=== PATIENT | male | born 1945 | race Caucasian/White ===

== ENCOUNTER 2023-09-29 14:04 | Inpatient (IN) | payer OTHER, SELFPAY ==
[2023-09-28] VITALS (11 sets, daily range): BP systolic 137–176; BP diastolic 49–138; PULSE 67–70; BMI 25.3
[2023-09-28 15:51] LABS: Glucose - Point of Care 78 mg/dl (70-99)
--- NOTE | 2023-09-28 17:27 | ED.CVA ---
History of Present Illness
<Dionicio Smalls PA-C - Last Filed: 09/28/23 18:54>
General
Chief Complaint: CVA/TIA Symptoms
Source: patient
Exam Limitations: none
Time Seen by Provider: 09/28/23 17:31
Onset of Stroke Symptoms
Onset of symptoms known: Yes
Date of onset of symptoms: 09/28/23
Time pt last seen normal is known: Yes
Date last time pt seen normal: 09/28/23
History of Present Illness
History of Present Illness:
78-year-old male with insulin-dependent diabetes history presents 3 hours after having episode while eating lunch. He states his left arm and fingers became numb he started to feel dizzy and his family members noted a left-sided facial droop. The
symptoms lasted maybe 10 to 15 minutes. The facial droop and dizziness and resolved. The numbness slowly resolved thereafter. He currently has no complaints. He denies headache chest pain shortness of or persistent numbness to the hand. No
prior or TIA. He is not anticoagulated. No other complaints at this time
<Greta Wilkinson MD - Last Filed: >
Travel History
Have you had any contact with someone who has COVID-19?: No
Do you have any symptoms of coronavirus? Fever > 100 degrees, chills, cough, shortness of breath, sore throat, loss of taste or smell, muscle aches, or headache?: No
Phy Exam
<Dionicio Smalls PA-C - Last Filed: 09/28/23 18:54>
Physical Exam
Physical Exam:
General: Well-appearing male no acute respiratory distress HEENT: Normocephalic atraumatic
Heart: Regular rate and rhythm no murmurs
Lungs: Clear to auscultation bilaterally no wheezing
Neurologic exam: Alert and oriented x 3 no facial asymmetry or slurred speech. No drift on exam sensation intact visual beck intact no aphasia or dysarthria.
Extremities: No cyanosis or edema
Abdomen soft nontender nondistended no guarding or rebound
Course
<Dionicio Smalls PA-C - Last Filed: 09/28/23 18:54>
Orders/Labs/Results
Orders:
Orders
09/28/23 15:48
CT Head W/o Iv Contrast Urgent
Comment: no slurred speech at present.hx IDDM
Reason For Exam: numbness to left hand.slurred speech a lunch today
09/28/23 17:56
Electrocardiogram (*1) Urgent
Reason for Study: TIA/Stroke
EKG- Treatment ONCE
09/28/23 18:03
Alcohol Urgent
Complete Blood Count/With Diff Urgent
Comprehensive Metabolic Panel Urgent
Abnormal Lab Results
09/28/23
18:03
RBC 3.45 L 10^6/uL
(4.70-6.10)
Hgb 10.8 L g/dL
(13.0-18.0)
Hct 31.3 L %
(39.0-52.0)
MCH 31.3 H pg
(27.0-31.0)
MPV 10.5 H fL
(7.4-10.4)
Abs Immat Gran (auto) 0.1 H 10^3/uL
(0-0.05)
Absolute Monos (auto) 0.8 H 10^3/uL
(0.1-0.6)
Immature Gran % 0.8 H %
(0-0.5)
Lymphocytes % 14.8 L %
(20.5-51.1)
Monocytes % 10.7 H %
(1.7-9.3)
BUN 50 H mg/dl
(9-20)
Glucose 109 H mg/dl
(70-99)
09/28/23 18:03
09/28/23 18:03
Vital Signs
Initial and Last Documented VS:
Initial Vital Signs
Temp Pulse Resp BP Pulse Ox
98.1 F 69 16 153/56 98
09/28/23 15:44 09/28/23 15:44 09/28/23 15:44 09/28/23 15:44 09/28/23 15:44
Last Documented Vital Signs
Temp Pulse Resp BP Pulse Ox
98.1 F 67 14 142/67 100
09/28/23 15:44 09/28/23 18:02 09/28/23 18:02 09/28/23 18:02 09/28/23 18:00
<Greta Wilkinson MD - Last Filed: >
Orders/Labs/Results
Orders:
Orders
09/28/23 15:48
CT Head W/o Iv Contrast Urgent
Comment: no slurred speech at present.hx IDDM
Reason For Exam: numbness to left hand.slurred speech a lunch today
09/28/23 17:56
Electrocardiogram (*1) Urgent
Reason for Study: TIA/Stroke
EKG- Treatment ONCE
09/28/23 18:03
Alcohol Urgent
Complete Blood Count/With Diff Urgent
Comprehensive Metabolic Panel Urgent
Abnormal Lab Results
09/28/23
18:03
RBC 3.45 L 10^6/uL
(4.70-6.10)
Hgb 10.8 L g/dL
(13.0-18.0)
Hct 31.3 L %
(39.0-52.0)
MCH 31.3 H pg
(27.0-31.0)
MPV 10.5 H fL
(7.4-10.4)
Abs Immat Gran (auto) 0.1 H 10^3/uL
(0-0.05)
Absolute Monos (auto) 0.8 H 10^3/uL
(0.1-0.6)
Immature Gran % 0.8 H %
(0-0.5)
Lymphocytes % 14.8 L %
(20.5-51.1)
Monocytes % 10.7 H %
(1.7-9.3)
BUN 50 H mg/dl
(9-20)
Glucose 109 H mg/dl
(70-99)
09/28/23 18:03
09/28/23 18:03
Vital Signs
Initial and Last Documented VS:
Initial Vital Signs
Temp Pulse Resp BP Pulse Ox
98.1 F 69 16 153/56 98
09/28/23 15:44 09/28/23 15:44 09/28/23 15:44 09/28/23 15:44 09/28/23 15:44
Last Documented Vital Signs
Temp Pulse Resp BP Pulse Ox
98.1 F 67 14 142/67 100
09/28/23 15:44 09/28/23 18:02 09/28/23 18:02 09/28/23 18:02 09/28/23 18:00
<Dionicio Smalls PA-C - Last Filed: 09/28/23 18:54>
MDM/Problems Addressed
Differential Diagnosis Includes:
Transient episode of facial droop left arm numbness and dizziness. Concern for possible TIA versus CVA. Considered hypoglycemic episode however he has continuous glucose monitoring. Fingerstick here was 79. Blood pressure 150s over 50s. Will
check labs. CT of the head was done through triage which was negative for acute finding. Discussed with neurology. Will keep further stroke workup and recommend dual antiplatelet therapy
<EDWARD Ortez Last Filed: 09/28/23 18:54>
*Critical Care Note
Total Time (30-74mins, 75-104mins- exclusive of procedures): Not Applicable
<Greta Wilkinson MD - Last Filed: >
-
Portions of this chart may have been created with voice recognition software.� Occasional wrong word or��sound alike� substitutions may have occurred due to the inherent limitations of voice recognition software.
Discharge Plan
Departure
Patient Disposition: Admit
Date of Disposition: 09/28/23
Time of Disposition: 18:53
Admit to: Telemetry
Presentation/result/management discussed w/ accepting MD/DO: Hospitalist
Discharge Problem:
TIA (transient ischemic attack)
Interventions
Interventions:
*Risk Screen - Suicide Last Done: 09/28/23 18:51
*General Assessment Last Done: 09/28/23 18:51
*Neglect/Abuse Screening Last Done: 09/28/23 18:51
*ED COVID-19 Vaccine History Last Done: 09/28/23 15:44
ED- Pulmonary Assessment Last Done: 09/28/23 18:50
ED- Neurological Assessment Last Done: 09/28/23 18:50
ED- Cardiac Assessment Last Done: 09/28/23 18:50
[2023-09-28 18:13] LABS: % Basophils 0.6 % (0-2); % Eosinophils 2.4 % (0-6); % Immature Granulocytes 0.8 % (0-0.5); % Lymphocytes 14.8 % (20.5-51.1); % Monocytes 10.7 % (1.7-9.3); % Neutrophils 70.7 % (42.2-75.2); Absolute Basophils 0.1 10^3/uL (0-0.2); Absolute Eosinophils 0.2 10^3/uL (0-0.7); Absolute Immature Granulocytes 0.1 10^3/uL (0-0.05); Absolute Lymphocytes 1.2 10^3/uL (1.2-3.4); Absolute Monocytes 0.8 10^3/uL (0.1-0.6); Absolute Neutrophils 5.5 10^3/uL (1.4-6.5); Hematocrit 31.3 % (39.0-52.0); Hemoglobin 10.8 g/dL (13.0-18.0); Mean Corp Hgb Conc. 34.5 g/dL (33.0-37.0); Mean Corpuscular Hgb 31.3 pg (27.0-31.0); Mean Corpuscular Volume 90.7 fL (80.0-94.0); Mean Platelet Volume 10.5 fL (7.4-10.4); Nucleated Red Blood Cells % 0 % (-); Platelet Count 242 10^3/uL (130-400); Red Blood Cell Count 3.45 10^6/uL (4.70-6.10); Red Cell Dist. Width 13.1 % (11.5-14.5); White Blood Cell Count 7.8 10^3/uL (4.8-10.8)
[2023-09-28 18:25] LABS: ALT (SGPT) 23 U/L (0-50); AST (SGOT) 30 U/L (17-59); Albumin 4.4 g/dl (3.5-5.0); Alkaline Phosphatase 99 U/L (38-126); Blood Urea Nitrogen 50 mg/dl (9-20); Calcium 9.7 mg/dl (8.4-10.2); Carbon Dioxide 26 mmol/L (22-30); Chloride 103 mmol/L (98-107); Glucose 109 mg/dl (70-99); Potassium 5.1 mmol/L (3.5-5.1); Sodium 138 mmol/L (135-145); Total Bilirubin 0.4 mg/dl (0.2-1.3); Total Protein 8.1 g/dl (6.3-8.2); eGFR > 60.00
[2023-09-28 18:36] LABS: Alcohol None Detected
--- NOTE | 2023-09-28 19:36 | HPS.HSE ---
Family Physician
-
Family Physician: Hiram Bauer MD
Chief Complaint
-
Numbness, Speech Abnormality
History of Present Illness
Patient is a 78y M with PMH significant for hypertension, DM-II and prior TIA who presents to ED for evaluation of stroke-like symptoms this afternoon. History obtained from patient and family at the bedside. Patient was out for lunch with
family today. He became somewhat 'wobbly' while walking to lunch - which is reportedly not unusual for him. He is in PT as an outpatient for chronic gait imbalance. During lunch, patient complained of numb sensation in his index and middle finger
on the L hand. Family noted that he had some L facial droop and his speech sounded 'thicker' than usual. They also noted that patient appeared to be having some difficult with eating / using his fork. Patient is L handed.
Patient was brought to the ED for further evaluation.
At the time of my exam, patient is feeling well and family agrees that he appears to be at his baseline.
Patient does report a prior history of TIA.
No recent illness. No headache or visual changes.
Family notes that patient was recently taken off of lisinopril. They felt that this may be causing hypotension and contributing to his gait issues / imbalance.
Medical History
Past Medical History
Past Medical History: Reports Other
Additional Past Medical History:
DM-II
TIA
Hypertension
Melanoma
Past Surgical History: Reports Other
Additional Past Surgical History:
Mohs Surgeries
Social History
Tobacco: Non-smoker
Alcohol: Daily (2 drinks daily)
Drug: None
Family History
Family History: Not pertinent
Allergies / Home Medications
Allergies reflects when Allergies were last updated in [facility].
Home Medications with original date entered in [facility]
Allergy/Medication List:
Allergies
Allergy/AdvReac Type Severity Reaction Status Date / Time
No Known Allergies Allergy Verified 09/28/23 15:48
Home Medications
aspirin 81 mg chewable tablet 81 mg PO DAILY 09/28/23
atorvastatin 10 mg tablet 10 mg PO HS 09/28/23
insulin aspart U-100 100 unit/mL subcutaneous solution (Novolog U-100 Insulin aspart) 5 unit SC TID 09/28/23
insulin degludec 100 unit/mL (3 mL) subcutaneous pen (Tresiba FlexTouch U-100 insulin) 30 unit SC HS 09/28/23
Review of Systems
-
History Source: Patient
A 12 point ROS was completed and negative except as noted: Yes
Constitutional: Denies Fever or Chills
Respiratory: Denies Cough or Trouble Breathing
Cardiac: Denies Chest Pain or Palpitations
Abdomen/GI: Denies Abdominal Pain, Nausea, Vomiting or Diarrhea
: Denies Dysuria or Frequency
Musculoskeletal: Denies Joint Pain or Edema
Neurological: Reports Numbness and Other (Ataxia, Slurred speech); Denies Dizzy or Headache
Physical Exam
Vital Signs
Vital Signs
Temp Pulse Resp BP Pulse Ox
98.1 F 67 14 142/67 100
09/28/23 15:44 09/28/23 18:02 09/28/23 18:02 09/28/23 18:02 09/28/23 18:00
Physical Exam
General: Other (78y M in no acute distress.)
HEENT: Moist mucous membranes, PERRLA and Other (No carotid bruits)
Respiratory: Clear; No Wheezes, Rales or Rhonchi
Cardiac: S1/S2 and Regular Rhythm; No Murmur
GI: Soft, Non Tender, Non Distended and Normal Bowel Sounds
Musculoskeletal: No Clubbing, No Cyanosis and No Edema
Neuro: AO x 3 and Nonfocal/grossly intact
Psych: No Anxious or Depressed
Laboratory Results
-
09/28/23 18:03
03/25/24 18:03
Laboratory Results
Total Bilirubin 0.4 mg/dl (0.2-1.3) 09/28/23 18:03
AST 30 U/L (17-59) 09/28/23 18:03
ALT 23 U/L (0-50) 09/28/23 18:03
Alkaline Phosphatase 99 U/L (38-126) 09/28/23 18:03
Impression/Plan
-
A/P: Patient is a 78y M with PMH significant for HTN and DM-II who presents to ED for evaluation of L hand numbness, ataxia and slurred speech.
CVA / TIA
- Observe overnight for further evaluation and treatment.
- Currently at baseline / symptom-free in the ED.
- Initially hypertensive and has improved without intervention.
- CT head was unremarkable.
- Continue ASA and add Plavix.
- Continue statin and check AM lipid profile.
- Monitor for changes in neuro exam / recurrent symptoms.
- Neuro eval in AM. PT / OT evals.
- MR brain in AM.
DM-II
- Stable. Continue basal : bolus insulin regimen.
- Follow glucose and cover with SSI as neede.d
- Update A1C.
Benign Hypertension
- Recently discontinued lisinopril for fears of LOW blood pressure.
- BP initially high here on presentation but has since decreased.
- Monitor off of medication for now.
- Begin new medication prior to discharge if necessary to achieve normotension.
Normocytic Anemia
- Unclear etiology.
- Check iron studies, B12, etc.
- No evidence of recent / acute blood loss.
- Follow for changes in H&H.
DVT Prophylaxis: SCDs
Code Status: Full
[2023-09-28 22:50] LABS: Iron 84 ug/dl (49-181)
[2023-09-28 22:59] LABS: Percent Saturation 26 % (20-50); Total Iron Binding Capacity 318 ug/dl (261-462)
--- NOTE | 2023-09-28 23:00 | PTCARENOTE ---
Received patient from ED via stretcher. Patient ambulated from stretcher to bed with assistance. No current complaints of pain. NIH 1, patient oriented to self and place only. Oriented patient to room and placed call ruiz within reach.
[2023-09-28] MEDS: LIPITOR 10 MG PO (23:01)
[2023-09-28] MEDS: NSS 1000 IV (23:01)
[2023-09-28] MEDS: LANTUS 0.299999999999999989 UNITS SC (23:15)
[2023-09-28 23:16] LABS: Glucose - Point of Care 216 mg/dl (70-99)
[2023-09-29] VITALS (9 sets, daily range): BP systolic 137–167; BP diastolic 60–75; PULSE 62–68; O2SAT 100; BMI 25.4
--- NOTE | 2023-09-29 02:00 | PTCARENOTE ---
Patient with intermittent epistaxis overnight. Patient offers no complaints. States it 'has been going on for the past year'. BUILDINGS AND GROUNDS DIRECTOR made aware, no new orders at this time.
[2023-09-29 03:22] LABS: Vitamin B12 508 pg/ml (239-931)
[2023-09-29 06:54] LABS: Glucose - Point of Care 112 mg/dl (70-99)
[2023-09-29 07:36] LABS: Hematocrit 28.9 % (39.0-52.0); Hemoglobin 9.5 g/dL (13.0-18.0); Mean Corp Hgb Conc. 32.9 g/dL (33.0-37.0); Mean Corpuscular Hgb 30.3 pg (27.0-31.0); Mean Platelet Volume 10.5 fL (7.4-10.4); Platelet Count 192 10^3/uL (130-400); Red Blood Cell Count 3.14 10^6/uL (4.70-6.10); Red Cell Dist. Width 13.2 % (11.5-14.5); White Blood Cell Count 4.8 10^3/uL (4.8-10.8)
[2023-09-29 08:05] LABS: Blood Urea Nitrogen 39 mg/dl (9-20); Calcium 9.3 mg/dl (8.4-10.2); Carbon Dioxide 25 mmol/L (22-30); Chloride 105 mmol/L (98-107); Estimated Creatinine Clearance 75 ml/min; Glucose 116 mg/dl (70-99); HDL Cholesterol 36 mg/dl; LDL Cholesterol, Calculated 61 mg/dl; Potassium 4.3 mmol/L (3.5-5.1); Sodium 138 mmol/L (135-145); Total Cholesterol 127 mg/dl (50-199); Triglyceride 154 mg/dl (10-149); Very Low Density Lipoprotein 30 mg/dl (0-30); eGFR > 60.00
[2023-09-29 08:43] LABS: Glycohemoglobin (HgbA1c) 7.1 % (4.0-5.6)
[2023-09-29] MEDS: NOVOLOG FLEXPEN-LOW RESISTANCE SC (08:56)
[2023-09-29] MEDS: LOW STRENGTH ASPIRIN 81 MG PO (09:07)
[2023-09-29] MEDS: PLAVIX 75 MG PO (09:07)
[2023-09-29 12:04] LABS: Glucose - Point of Care 183 mg/dl (70-99)
[2023-09-29] MEDS: NSS 1000 IV (12:48)
[2023-09-29] MEDS: NOVOLOG FLEXPEN-LOW RESISTANCE 1 UNITS SC (12:48)
--- NOTE | 2023-09-29 13:06 | CON.NEURO4 ---
Addendum entered and electronically signed by Tawanda Tavarez MD 09/30/23 08:21:
Studies reviewed.
I have personally examined the patient. I reviewed and agree with the RIVER BOAT CAPTAIN's Note.
My addenda:
Awake, alert, interactive. No acute distress.
Speech intact.
Follows 2-step requests w/o difficulty. No tremor.
Extra-ocular movements grossly intact.
Facial movements full and symmetric. Hearing intact to normal conversational volume.
Normal UE movements bilaterally.
Neck: full ROM.
Chest: no dyspnea
Heart: no JVD
Ext: (-) Clubbing, (-) Cyanosis, (-) Edema
IMPRESSIONS/RECOMMENDATIONS:
Abrupt onset of aphasia, cognitive dysfunction likely attributable to right parietal lacunar acute ischemic stroke
Patient was not a candidate for either tenecteplase or large vessel clot retrieval due to NIH stroke score less than 6 and timeframe out of window
Dual antiplatelet therapy with aspirin and clopidogrel for 21 days then aspirin lifelong
Check carotid ultrasound
Provide medical educational materials
Goal of normotension at this time
D/W patient
Will continue to follow as outpatient.
Original Note:
Documented by User: HALEY Rubi 09/30/23 08:10
Consultation - Neurology 4
-
CONSULTING PHYSICIAN: Dr. Tawanda Tavarez
REFERRING PHYSICIAN: Dr. Davidson
DICTATED BY: HALEY Rubi
DATE/TIME OF REQUEST: 09/28/2023, 2215
DATE/TIME OF CONSULTATION: 09/29/2023
Reason for Consultation: stroke symptoms
History of Present Illness:
This is a 78 year old left handed male patient with PMH significant for hypertension, and DM-II who presents to ED for evaluation of stroke symptoms yesterday (09/28/2023).� Patient was out for lunch when family noted speech changes, some
difficulty using fork and left facial droop. He noted numbness of second and third finger that lasted about 5 minutes. He also report feeling wobbly. He does endorse a history of unsteady gait of which he goes to PT and attempts to walk at least a
mile daily.�He denied, unilateral weakness, headache or visual changes. Patient was recently taken off lisinopril due to hypotension. PCP felt this may be contributing to his underlying gait issues. He does not take any blood thinning medications.
Past Medical History: Reports Other
Additional Past Medical History:
DM-II
TIA
Hypertension
Melanoma
Past Surgical History: Reports Other
Additional Past Surgical History:
Mohs Surgeries
Social History
Tobacco: Non-smoker
Alcohol: Daily (2 drinks daily)
Drug: None
Family History
Family History: Not pertinent
Past Medical History:
Allergies: see below
Home Medications: see below
Review of Symptoms:
Patient denies any fever, headache, chest pain, shortness of breath, GI or symptoms.
Vital Signs: see below
Physical Exam:
The patient is afebrile, heart sounds regular, and no dyspnea
Neurologic Examination:
The patient is awake, alert and oriented x 3. He able to follow commands and answer questions appropriately. There is no aphasia or dysarthria. On cranial nerve assessment, pupils are 3 mm bilateral, round and reactive to light and accommodation.
Visual beck are full. Extraocular movements are intact with the exception of weak upgaze b/l. Facial sensations are intact and bilaterally symmetrical, there is no facial asymmetry. Hearing is intact bilaterally to normal conversation volume.
Tongue palate and uvula are midline. Sternocleidomastoid strengths are full bilaterally. Motor strengths are 5/5 bilateral upper and lower extremities on medical research Kiana scale. There is no drift or involuntary movement noted. Deep tendon
reflexes are 1+ bilateral upper and lower extremities and Babinski is absent bilaterally. Sensations of light touch and temperature are intact and bilaterally symmetrical. There was no extinction noted on double simultaneous stimulation.
Coordination is intact by finger to nose bilaterally. (+)Romberg.
Lab Results: see below
Neuro Imaging:
CT head (09/28/2023)-There are no acute intracranial abnormalities.
There is moderate diffuse cortical atrophy with moderate nonspecific white matter changes as described above.
MRI brain (09/29/2023)-There is a single tiny focus of nonhemorrhagic acute infarct at the right high parietal region, no significant adjacent edema.
Moderate diffuse volume loss and moderate leukoaraiosis.
Moderate chronic sinus disease.
Impression:
JUSTINA HIGGINS is a 78 year old M who has presented to the hospital with changes in speech, left hand numbness and mild difficulty with coordination.
Symptoms are likely the result of small right parietal stroke as noted on MRI brain.
Recommendations:
-reviewed MRI brain (+) acute stroke
-ASA 81 mg and Plavix 75 mg daily x21 days then continue ASA 81 mg indefinitely, monitor for nose bleeds, as pt notes night epistaxis
-obtain CUS
-Continue Crestor, his LDL was 61 at goal (less than 70)
-goal normotension
-goal normoglycemia
-neuro checks and NIHSS per unit guidelines
-continue PT/OT and speech evaluations
-provide stroke education
-DVT prophylaxis
Discussed patient care with patient, nursing and Dr. Tavarez
Medication and Allergies
Home Medications
Home Medications
Medication Instructions Recorded
donepezil 5 mg tablet 5 mg PO HS cognition 09/28/23
insulin aspart U-100 100 unit/mL 5 unit SC DAILY diabetes 09/28/23
(3 mL) subcutaneous pen (Novolog
FlexPen U-100 Insulin aspart)
insulin aspart U-100 100 unit/mL 10 unit SC DAILY@1300 diabetes 09/28/23
(3 mL) subcutaneous pen (Novolog
FlexPen U-100 Insulin aspart)
insulin aspart U-100 100 unit/mL 15 unit SC QPM diabetes 09/28/23
(3 mL) subcutaneous pen (Novolog
FlexPen U-100 Insulin aspart)
insulin degludec 100 unit/mL (3 30 unit SC HS diabetes 09/28/23
mL) subcutaneous pen (Tresiba
FlexTouch U-100 insulin)
rosuvastatin 20 mg tablet 20 mg PO DAILY high cholesterol 09/28/23
Allergies
Allergies
Allergy/AdvReac Type Severity Reaction Status Date / Time
No Known Allergies Allergy Verified 09/28/23 15:48
Vital Signs and Labs
-
Vital Signs and Labs:
Vital Signs
Temp Pulse Resp BP Pulse Ox
97.3 F 61 16 158/71 100
09/29/23 11:05 09/29/23 11:05 09/29/23 11:05 09/29/23 11:05 09/29/23 11:05
Lab Results
09/29/23 07:10
09/29/23 07:10
Sodium 138 mmol/L (135-145) 09/29/23 07:10
Potassium 4.3 mmol/L (3.5-5.1) 09/29/23 07:10
BUN 39 mg/dl (9-20) H 09/29/23 07:10
Glucose 116 mg/dl (70-99) H 09/29/23 07:10
Calcium 9.3 mg/dl (8.4-10.2) 09/29/23 07:10
LDL Cholesterol, Calc 61 mg/dl 09/29/23 07:10
Vitamin B12 508 pg/ml (222-931) 09/28/23 18:03

Documented by User: Tawanda Tavarez MD 09/30/23 08:17
Consultation - Neurology 4
-
CONSULTING PHYSICIAN: Dr. Tawanda Tavarez
REFERRING PHYSICIAN: Dr. Davidson
DICTATED BY: HALEY Rubi
DATE/TIME OF REQUEST: 09/28/2023, 2215
DATE/TIME OF CONSULTATION: 09/29/2023
Reason for Consultation: stroke symptoms
History of Present Illness:
This is a 78 year old left handed male patient with PMH significant for hypertension, and DM-II who presents to ED for evaluation of stroke symptoms yesterday (09/28/2023).� Patient was out for lunch when family noted speech changes, some
difficulty using fork and left facial droop. He noted numbness of second and third finger that lasted about 5 minutes. He also report feeling wobbly. He does endorse a history of unsteady gait of which he goes to PT and attempts to walk at least a
mile daily.�He denied, unilateral weakness, headache or visual changes. Patient was recently taken off lisinopril due to hypotension. PCP felt this may be contributing to his underlying gait issues. He does not take any blood thinning medications.
Past Medical History: Reports Other
Additional Past Medical History:
DM-II
TIA
Hypertension
Melanoma
Past Surgical History: Reports Other
Additional Past Surgical History:
Mohs Surgeries
Social History
Tobacco: Non-smoker
Alcohol: Daily (2 drinks daily)
Drug: None
Family History
Family History: Not pertinent
Past Medical History:
Allergies: see below
Home Medications: see below
Review of Symptoms:
Patient denies any fever, headache, chest pain, shortness of breath, GI or symptoms.
Vital Signs: see below
Physical Exam:
The patient is afebrile, heart sounds regular, and no dyspnea
Neurologic Examination:
The patient is awake, alert and oriented x 3. He able to follow commands and answer questions appropriately. There is no aphasia or dysarthria. On cranial nerve assessment, pupils are 3 mm bilateral, round and reactive to light and accommodation.
Visual beck are full. Extraocular movements are intact with the exception of weak upgaze b/l. Facial sensations are intact and bilaterally symmetrical, there is no facial asymmetry. Hearing is intact bilaterally to normal conversation volume.
Tongue palate and uvula are midline. Sternocleidomastoid strengths are full bilaterally. Motor strengths are 5/5 bilateral upper and lower extremities on medical research Kiana scale. There is no drift or involuntary movement noted. Deep tendon
reflexes are 1+ bilateral upper and lower extremities and Babinski is absent bilaterally. Sensations of light touch and temperature are intact and bilaterally symmetrical. There was no extinction noted on double simultaneous stimulation.
Coordination is intact by finger to nose bilaterally. (+)Romberg.
Lab Results: see below
Neuro Imaging:
CT head (09/28/2023)-There are no acute intracranial abnormalities.
There is moderate diffuse cortical atrophy with moderate nonspecific white matter changes as described above.
MRI brain (09/29/2023)-There is a single tiny focus of nonhemorrhagic acute infarct at the right high parietal region, no significant adjacent edema.
Moderate diffuse volume loss and moderate leukoaraiosis.
Moderate chronic sinus disease.
Impression:
JUSTINA HIGGINS is a 78 year old M who has presented to the hospital with changes in speech, left hand numbness and mild difficulty with coordination.
Symptoms are likely the result of small right acute ischemic parietal stroke as noted on MRI brain.
Recommendations:
-reviewed MRI brain (+) acute stroke
-ASA 81 mg and Plavix 75 mg daily x21 days then continue ASA 81 mg indefinitely, monitor for nose bleeds, as pt notes night epistaxis
-obtain CUS
-Continue Crestor, his LDL was 61 at goal (less than 70)
-goal normotension
-goal normoglycemia
-neuro checks and NIHSS per unit guidelines
-continue PT/OT and speech evaluations
-provide stroke education
-DVT prophylaxis
Discussed patient care with patient, nursing and Dr. Tavarez
--- NOTE | 2023-09-29 16:44 | W.PN.HOSP.TC ---
Today's Communication/Plan
-
PT/OT
d/c planning
Assessment / Plan
Assessment / Plan
Pt is a 78 year old male
acute CVA--by MRI--cont asa/plavix--head CT on admission, negative--check carotid US, apprec neuro--PT/OT--lipid panel shows LDL of 61--cont statin
DM-II�- Stable--Continue basal:bolus insulin regimen�- Follow glucose and cover with SSI as needed- Update A1C.
Essential Hypertension�- Recently discontinued lisinopril for fears of LOW blood pressure�- Monitor off of medication for now--may need to restart
�
Normocytic Anemia�- Unclear etiology.�- Check iron studies, B12, etc.- No evidence of recent/acute blood loss.- Follow for changes in H&H.
DVT Prophylaxis:� SCDs
Code Status:� Full
Anticipated Discharge: 24 - 48 hours
Subjective/Interval History
-
Date of Service: September 29, 2023
pt confused as per RN
Objective Data
-
Labs:
Laboratory Results
09/29/23
07:10
WBC 4.8
Hgb 9.5 L
Hct 28.9 L
Plt Count 192 D
Sodium 138
Potassium 4.3
Chloride 105
Carbon Dioxide 25
BUN 39 H
Creatinine 0.9
Glucose 116 H
Calcium 9.3
Vital Signs:
max temp for 24 hours
09/29/23
07:51
Temp 98.0 F
Vital Signs
Temp Pulse Resp BP Pulse Ox
98.2 F 68 16 152/67 98
09/29/23 15:11 09/29/23 15:11 09/29/23 15:11 09/29/23 15:11 09/29/23 15:11
I&O
09/28/23 09/29/23 09/30/23
06:59 06:59 06:59
Output Total 700 / 700
Balance -700 / -700
Review of Systems
-
All other systems: Reviewed and negative
Physical Exam
-
General: Well Developed, Well Nourished and No Apparent Distress
HEENT: Normocephalic and Atraumatic
Respiratory: Clear to Auscultation; Negative Wheezes, Rales, Rhonchi or Crackles
Cardiac: Regular Rhythm and S1/S2; Negative Murmur
GI: Soft, Nontender, Nondistended and Normal Bowel Sounds
Musculoskeletal: No Clubbing, No Cyanosis and No Edema
Neuro: Awake, Alert, Slurred Speech and Facial Droop (mild to my eye)
Psych: Confused
--- NOTE | 2023-09-29 16:48 | CM ---
Patient lives with , in a one story home with a walker and cane at home. PCP is and the pharmacy is [facility] in [facility]. Patient somewhat confused when talking to CM and physician. Patient indicated that he was normally able to be
left alone but had varying degrees of confusion on a normal basis. Patient to visit later tonight with updates. CM will continue to follow for discharge planning needs.
Plan; home with VN vs SNF pending functional status assessments.
[2023-09-29 16:52] LABS: Glucose - Point of Care 230 mg/dl (70-99)
--- NOTE | 2023-09-29 17:09 | PTCARENOTE ---
Pt having periods of confusion, found walking around the room fully dressed tele monitor off, easily reoriented, bed alarm in place, continues with word finding difficulty, slow to process at times, NIH remains 1 .MD aware VSS, Call ruiz within
reach, plan of care ongoing.
[2023-09-29] MEDS: NOVOLOG FLEXPEN-LOW RESISTANCE 2 UNITS SC (17:27)
[2023-09-29 21:13] LABS: Glucose - Point of Care 302 mg/dl (70-99)
[2023-09-29] MEDS: LIPITOR 10 MG PO (21:24)
[2023-09-29] MEDS: LANTUS 0.299999999999999989 UNITS SC (21:24)
--- NOTE | 2023-09-30 04:04 | DOWNTIME ---
There was a [employer] Client Clinical Nurse Occupational Medicine Downtime on 09/30/2023 from 0100 to 09/30/2023 at 0322. Downtime documentation of patient's care, including medication administrations, has been reconciled in the electronic record per guidelines. Refer to the
patient's paper chart under the miscellaneous tab to see printed paper medication records and downtime forms.
[2023-09-30 04:48] VITALS: BP 115/54; BP 152/70; BP 156/74; PULSE 57; PULSE 58; PULSE 63
[2023-09-30 06:00] VITALS: BMI 25.3
[2023-09-30 06:17] LABS: Hematocrit 27.9 % (39.0-52.0); Hemoglobin 9.5 g/dL (13.0-18.0); Mean Corp Hgb Conc. 34.1 g/dL (33.0-37.0); Mean Corpuscular Hgb 30.6 pg (27.0-31.0); Platelet Count 211 10^3/uL (130-400); Red Cell Dist. Width 13.1 % (11.5-14.5); White Blood Cell Count 4.3 10^3/uL (4.8-10.8)
[2023-09-30 06:41] LABS: Blood Urea Nitrogen 34 mg/dl (9-20); Calcium 9.3 mg/dl (8.4-10.2); Carbon Dioxide 24 mmol/L (22-30); Chloride 106 mmol/L (98-107); Estimated Creatinine Clearance 85 ml/min; Glucose 238 mg/dl (70-99); Magnesium 1.9 mg/dl (1.6-2.3); Potassium 4.3 mmol/L (3.5-5.1); Sodium 136 mmol/L (135-145); eGFR > 60.00
[2023-09-30] MEDS: LOW STRENGTH ASPIRIN 81 MG PO (07:42)
[2023-09-30] MEDS: PLAVIX 75 MG PO (07:42)
[2023-09-30] MEDS: NOVOLOG FLEXPEN-LOW RESISTANCE 1 UNITS SC (07:44)
[2023-09-30 07:45] LABS: Glucose - Point of Care 182 mg/dl (70-99)
[2023-09-30 07:55] VITALS: BP 122/59; BP 138/74; BP 142/58; PULSE 62; PULSE 76
[2023-09-30 11:33] LABS: Glucose - Point of Care 276 mg/dl (70-99)
[2023-09-30 11:53] VITALS: BP 145/71; PULSE 61; O2SAT 99
[2023-09-30] MEDS: NOVOLOG FLEXPEN-LOW RESISTANCE 3 UNITS SC ×2 (13:31→17:20)
[2023-09-30 14:53] VITALS: BP 137/66
--- NOTE | 2023-09-30 15:54 | CM ---
Patient seen at bedside with physician. Patient states that he will follow recommendations of physician. Patient sister also present. IMM completed and signed form placed on chart. Patient to go home with his sister and anticipates that physician
will assess discharge needs. Possible for outpatient therapy, will need script if recommended. CM will continue to follow for discharge planning needs.
Plan; home with outpatient therapy pending physician assessment.
--- NOTE | 2023-09-30 16:17 | W.PN.HOSP.TC ---
Today's Communication/Plan
-
d/c
Assessment / Plan
Assessment / Plan
Pt is a 78 year old male
acute CVA--by MRI--cont asa/plavix--head CT on admission, negative--carotid US pending, apprec neuro--PT/OT--lipid panel shows LDL of 61--cont statin
DM-II�- Stable--Continue basal:bolus insulin regimen�- Follow glucose and cover with SSI as needed- Update A1C.
Essential Hypertension�- Recently discontinued lisinopril for fears of LOW blood pressure�- Monitor off of medication for now--may need to restart
�
Normocytic Anemia�- Unclear etiology-- iron studies, B12 all OK- No evidence of recent/acute blood loss
DVT Prophylaxis:� SCDs
Code Status:� Full
Anticipated Discharge: Today
Subjective/Interval History
-
Date of Service: September 30, 2023
pt ready to go home
Objective Data
-
Labs:
Laboratory Results
09/30/23
05:23
WBC 4.3 L
Hgb 9.5 L
Hct 27.9 L
Plt Count 211
Sodium 136
Potassium 4.3
Chloride 106
Carbon Dioxide 24
BUN 34 H
Creatinine 0.8
Glucose 238 H
Calcium 9.3
Vital Signs:
max temp for 24 hours
09/29/23
23:48
Temp 98.2 F
Vital Signs
Temp Pulse Resp BP Pulse Ox
98.8 F 71 18 137/66 95
09/30/23 14:53 09/30/23 14:53 09/30/23 14:53 09/30/23 14:53 09/30/23 15:11
I&O
09/29/23 09/30/23 10/01/23
06:59 06:59 06:59
Intake Total 480 / 480
Output Total 1400 / 1400
Balance -920 / -920
Review of Systems
-
All other systems: Reviewed and negative
Physical Exam
-
General: Well Developed, Well Nourished and No Apparent Distress
HEENT: Normocephalic and Atraumatic
Respiratory: Clear to Auscultation; Negative Wheezes or Rhonchi
Cardiac: Regular Rhythm and S1/S2; Negative Murmur
GI: Soft, Nontender, Nondistended and Normal Bowel Sounds
Musculoskeletal: No Clubbing, No Cyanosis and No Edema
Skin: Warm
Neuro: Awake
Psych: Calm
[2023-09-30 16:42] LABS: Glucose - Point of Care 264 mg/dl (70-99)
--- NOTE | 2023-09-30 19:13 | W.DCSUMMARY ---
Discharge Summary
Discharge Data
Date of Admission: 09/29/23
Date of Discharge: 09/30/23
-
Pending Results: No
Hospital Course
Primary care physician : Hiram Bauer
Principal Discharge diagnosis : Acute stroke
Chronic Discharge diagnosis : Type 2 diabetes mellitus, essential hypertension, anemia of chronic disease
Hospital Course : Patient was a 78-year-old male who presented for strokelike symptoms. Family stated that the patient was out to lunch with them and he became somewhat 'wobbly. He is in outpatient physical therapy for chronic gait and balance.
During lunch, the patient complained of numb sensation in his index and middle finger on his left hand. His family also noticed a left facial droop and his speech sounded 'thicker than usual'. Patient was brought in for evaluation and treatment.
Patient appeared to be back at baseline. Lisinopril was stopped due to hypotension thought to be causing his gait issues and imbalance. Patient was initially brought in as observation and eventually changed to inpatient due to acute stroke.
Problem #1: Acute stroke. Initial CAT scan of his head noted in the emergency department was negative. Patient underwent brain MRI which showed a single tiny focus of nonhemorrhagic acute infarct in the right high parietal region. He was seen in
consultation by neurology, PT/OT. He was started on aspirin and Plavix. Lipid studies showed a triglyceride of 154, total cholesterol of 127, LDL of 61. He was continued on his statin medication. He was given a prescription for outpatient
physical and Occupational Therapy as recommended by therapy evaluation here. Carotid ultrasound was also done which showed no hemodynamically significant stenosis.
Problem #2: All other medical issues. These include Type 2 diabetes mellitus, essential hypertension, anemia of chronic disease. These medical issues were stable during his hospitalization. Medications were continued as able.
Patient is stable for discharge home at this time. If there are any questions regarding this dictation or his hospital stay, please not hesitate to call. Our office number is [phone].
Important imaging findings :
HEAD CT IMPRESSION:
There are no acute intracranial abnormalities.
There is moderate diffuse cortical atrophy with moderate nonspecific white matter changes as described above.
MRI BRAIN IMPRESSION:
There is a single tiny focus of nonhemorrhagic acute infarct at the right high parietal region, no significant adjacent edema.
Moderate diffuse volume loss and moderate leukoaraiosis.
Moderate chronic sinus disease.
CAROTID ULTRASOUND IMPRESSION:
RIGHT: Calcified plaque is identified in the carotid bulb and internal carotid artery. Carotid velocity profile consistent with less than 50% stenosis. Vertebral artery flow is antegrade.
LEFT: Calcified plaque is identified in the carotid bulb and internal carotid artery. Carotid velocity profile consistent with less than 50% stenosis. Vertebral artery flow is antegrade.
Discharge Plan
-
Patient Disposition: Home (Routine Discharge)
Discharge Diagnosis/Procedures: Acute CVA, type 2 diabetes mellitus, essential hypertension, normocytic anemia
Condition: Good
Diet: Regular
Activity: As tolerated
Driving Restrictions: not until cleared by PT
Other Services: PT and OT
Referrals:
Hiram Bauer MD [Family Provider] - in less than 1 week
Prescriptions:
New
clopidogrel 75 mg Tablet
75 mg PO DAILY Qty: 30 0RF
aspirin [Children's Aspirin] 81 mg Tablet,Chewable
81 mg PO DAILY Qty: 0 0RF
Continued
donepezil 5 mg Tablet
5 mg PO HS
insulin aspart U-100 [Novolog FlexPen U-100 Insulin] 100 unit/mL (3 mL) Insulin Pen
5 unit SC DAILY
Patient Comments:
09/28/2023, per spouse, pt. takes 5 units with breakfast.
insulin aspart U-100 [Novolog FlexPen U-100 Insulin] 100 unit/mL (3 mL) Insulin Pen
10 unit SC DAILY@1300
Patient Comments:
09/28/2023, per spouse, pt. takes 10 units with lunch.
insulin aspart U-100 [Novolog FlexPen U-100 Insulin] 100 unit/mL (3 mL) Insulin Pen
15 unit SC QPM
Patient Comments:
09/28/2023, per spouse, pt. takes 15 units with dinner.
rosuvastatin 20 mg Tablet
20 mg PO DAILY
insulin degludec [Tresiba FlexTouch U-100] 100 unit/mL (3 mL) Insulin Pen
30 unit SC HS
Discharge Orders:
Discharge Patient (As Directed); Ordered 09/30/23
Ordered By: Leola Sanchez
Discharge Date and Time
Discharge Date/Time: 09/30/23 17:58
Print Language: ESTONIAN
--- NOTE | 2023-10-01 10:36 | PN.CDI ---
Addendum entered and electronically signed by Leola Sanchez MD 10/01/23 10:53:
bifascicular block likely valid but not related to his condition in any way
Original Note:
CDI
- -
CDI:
Physician Documentation Request
Admit Date: 09/29/23 14:04
Dear Doctor Laura,
Please review the following and provide your response in the progress notes.
Clinical Indicators:
The diagnosis of bifascicular block was included in the signed EKG 09/27 but not on EKG from 09/28
Please indicate in your progress notes if you are in agreement that the above diagnosis is valid for this patient:
____ - bifascicular block is a valid diagnosis (Please include it in your progress notes)
____ - bifascicular block is not a valid diagnosis for this patient
____ - bifascicular block is not yet confirmed but remains a suspected condition
____ - Other
Use of terms such as suspected, likely, concern for, or probable are acceptable for a diagnosis that is being evaluated, monitored or treated as if it exists and can be coded in the inpatient setting, when documented at the time of discharge.
Thank you,
Monie Venegas RN BSN
CDI Specialist
tiger text
Please use your independent medical judgment in providing your response.
--- NOTE | 2023-10-01 10:39 | PN.CDI ---
Addendum entered and electronically signed by Leola Sanchez MD 10/01/23 10:53:
confusion likely related to early memory loss not anything listed below
Original Note:
CDI
- -
CDI:
Physician Documentation Request
Admit Date: 09/29/23 14:04
Dear Doctor Laura,
Patient admitted with an acute stroke. Brain MRI impression states 'There is a single tiny focus of nonhemorrhagic acute infarct at the right high parietal region'
09/28 Nursing note states ' Pt having periods of confusion, found walking around the room fully dressed tele monitor off....'
progress note states 'pt confused as per RN '
Could you please clarify which is the most likely etiology of the confusion.
Encephalopathy - indicate type, such as metabolic, toxic, septic, alcoholic, anoxic, hypertensive etc. due to a specific condition such as UTI, CVA, hyponatremia etc.
Acute Delirium - indicate known or suspected etiology such as postoperative, due to opioids or other drugs etc. Can also indicate unknown or mixed etiologies.
Acute or subacute confusional state due to ____ (specify known or suspected etiology)
Other
Use of terms such as suspected, likely, concern for, or probable (associated with a specific diagnosis that is being evaluated, monitored, or treated as if it exists) are acceptable and can be coded in the inpatient setting, when documented at the
time of discharge.
Thank you,
Monie Venegas RN, BSN
CDI Specialist
tiger text
Please use your independent medical judgment in providing your response.
== END 2023-09-30 17:58 | disposition home or self-care (01) | DRG 66 ==
LOC: 4 EAST ACU 14:04
PROVIDERS: Physician Assistant; ADMITTING PHYSICIAN Hospitalist; ATTENDING PHYSICIAN Internal Medicine; CONSULT PHYSICIAN Psychiatry & Neurology Neurology; EMERGENCY PHYSICIAN Emergency Medicine; FAMILY PHYSICIAN Internal Medicine
DX: I63.9 Cerebral infarction, unspecified (principal); R29.810 Facial weakness; E11.9 Type 2 diabetes mellitus without complications; I10 Essential (primary) hypertension; D63.8 Anemia in other chronic diseases classified elsewhere; Z79.4 Long term (current) use of insulin
CPT/HCPCS: 70450; 70551; 80048; 80053; 80061; 82077; 82607; 82962; 83036; 83540; 83550; 83735; 85025; 85027; 93005; 93880; 97116; 97163; 97167; 99285